=== PATIENT | female | born 1990 ===

== ENCOUNTER 2017-04-11 16:04 | Emergency (ER) | payer OTHER ==
[2017-04-11 16:05] VITALS: BMI 32.3
[2017-04-11 16:29] VITALS: BP 138/74; PULSE 76; RESP 16; TEMP 98.4; O2SAT 99
--- NOTE | 2017-04-11 17:09 | ED PDOC ---
Lower Extremity Pain/Injury Time Seen by Provider: 04/11/17 16:31 Chief Complaint (Nursing): Lower Extremity Problem/Injury Chief Complaint (Provider): Ankle Injury History Per: Patient History/Exam Limitations: no limitations Current Symptoms Are (Timing): Still Present Additional Complaint(s): Deborah Mueller, a 27 year old female, presents to the ED with an ankle injury. The patient states that she was doing an obstacle course at work when she slipped and her ankle rolled. She describes the pain a 'stabbing' sensation that radiates upwards to her left hip and knee. The patient states that she took ibuprofen for pain which did offer some relief. - Ankle/Foot Description Of Injury: Twisted Past Medical History Reviewed: Historical Data, Nursing Documentation, Vital Signs Vital Signs: Last Vital Signs Temp 98.4 F 04/11/17 16:26 Pulse 76 04/11/17 16:26 Resp 16 04/11/17 16:26 BP 138/74 04/11/17 16:26 Pulse Ox 99 04/11/17 16:26 - Medical History PMH: No Chronic Diseases Denies: Chronic Kidney Disease - Surgical History Surgical History: No Surg Hx - Family History Family History: States: Unknown Family Hx - Social History Current smoker - smoking cessation education provided: No Alcohol: None Drugs: Denies - Allergies Allergies/Adverse Reactions: Allergies Allergy/AdvReac Type Severity Reaction Status Date / Time FISH Allergy ITCHING Verified 01/04/16 23:15 Fish Containing Products Allergy ITCHING Verified 01/04/16 23:15 shellfish derived Allergy RASH Verified 09/29/16 21:14 Review of Systems Musculoskeletal: Positive for: Other (Left Ankle Pain) Physical Exam - Reviewed Nursing Documentation Reviewed: Yes Vital Signs Reviewed: Yes - Physical Exam Appears: Positive for: Non-toxic, No Acute Distress Head Exam: Positive for: ATRAUMATIC, NORMAL INSPECTION, NORMOCEPHALIC Skin: Positive for: Normal Color, Warm, Dry. Negative for: Rash Eye Exam: Positive for: Normal appearance, EOMI, PERRL Extremity: Positive for: Tenderness (Tenderness to lateral and medial malleolus of left ankle.), Capillary Refill (Capillary refills normal.), Other (Mild edema to left ankle.). Negative for: Normal ROM (Decreased ROM secondary to pain), Deformity, Swelling Neurologic/Psych: Positive for: Alert, Oriented - ECG O2 Sat by Pulse Oximetry: 99 (RA) Pulse Ox Interpretation: Normal Medical Decision Making Medical Decision Makin Initial Impression: 27 year old female presenting with injury to left ankle Initial Plan: * RAD Ankle AP/LAT Left * Motrin tab 600mg PO * Reevaluation No acute fracture or dislocation Air cast and crutches Scribe Attestation Documented by Carla Fernandez acting as a scribe for Mercy Ha PA-C. Scribe Attestation All medical record entries made by the Scribe were at my direction and personally dictated by me. I have reviewed the chart and agree that the record accurately reflects my personal performance of the history, physical exam, medical decision making, and the department course for this patient. I have also personally directed, reviewed, and agree with the discharge instructions and disposition. Disposition - Clinical Impression Clinical Impression: Ankle sprain - Patient ED Disposition Is Patient to be Admitted: No Counseled Patient/Family Regarding: Diagnosis, Need For Followup - Disposition Disposition: Routine/Home Disposition Time: 17:43 Condition: GOOD Additional Instructions: Ice, elevation, motrin for pain. Instructions: Ankle Sprain (ED)
--- NOTE | 2017-04-11 17:33 | RAD ---
PROCEDURE: Left Ankle Radiographs. HISTORY: ankle pain, twisted last night COMPARISON: None FINDINGS: BONES: Normal. No fracture. Talar dome intact. JOINTS: Ankle mortise maintained. No significant osteoarthritis. SOFT TISSUES: Questionable minimal the soft swelling OTHER FINDINGS: None. IMPRESSION: No acute fractures. Questionable minimal soft tissue swelling
== END 2017-04-11 18:16 | disposition home or self-care (01) ==
LOC: H.ER 16:04
DX: S93.402A Sprain of unspecified ligament of left ankle, initial encounter (principal); W19.XXXA Unspecified fall, initial encounter; Y99.0 Civilian activity done for income or pay

== ENCOUNTER 2018-03-16 13:43 | Emergency (ER) | payer MEDICAID, OTHER ==
[2018-03-16 13:51] VITALS: RESP 16
[2018-03-16 13:53] VITALS: BMI 34.2
--- NOTE | 2018-03-16 15:01 | ED PDOC ---
HPI: Female Pain Time Seen by Provider: 03/16/18 14:02 Chief Complaint (Nursing): Female Genitourinary Chief Complaint (Provider): Vaginal bleeding History Per: Patient History/Exam Limitations: no limitations Additional Complaint(s): Pt reports vaginal bleeding X 1 month, associated with lower abdominal cramping , dizziness and feeling tired. Had similar episode when she was younger. Has not taken anything for pain. Denies fever, CP, SOB. PMD: Dr. Biswas OB-LENDING MANAGER: Dr. Lion Abnormal Vaginal Bleeding: Yes Past Medical History Reviewed: Nursing Documentation, Vital Signs Vital Signs: Last Vital Signs Temp 98.5 F 03/16/18 13:50 Pulse 75 03/16/18 13:50 Resp 16 03/16/18 13:50 BP 138/80 03/16/18 13:50 Pulse Ox 98 03/16/18 13:50 - Medical History PMH: No Chronic Diseases Denies: Chronic Kidney Disease - Surgical History Surgical History: No Surg Hx - Family History Family History: States: Unknown Family Hx - Social History Current smoker - smoking cessation education provided: No Alcohol: None - Home Medications Home Medications: Ambulatory Orders Medication Instructions Recorded MedroxyPROGESTERone [Provera] 10 mg PO DAILY #10 tab 03/16/18 Naproxen [Naprosyn] 500 mg PO BID PRN #15 tablet 03/16/18 Ondansetron [Zofran Odt] 4 mg PO Q8H PRN #15 odt 03/16/18 - Allergies Allergies/Adverse Reactions: Allergies Allergy/AdvReac Type Severity Reaction Status Date / Time FISH Allergy ITCHING Verified 03/16/18 14:07 Fish Containing Products Allergy ITCHING Verified 03/16/18 14:07 shellfish derived Allergy RASH Verified 03/16/18 14:07 Review of Systems Constitutional: Positive for: Weakness. Negative for: Fever, Chills Cardiovascular: Negative for: Chest Pain, Palpitations Respiratory: Negative for: Cough, Shortness of Breath Gastrointestinal: Positive for: Nausea, Abdominal Pain. Negative for: Vomiting , Diarrhea Genitourinary Female: Positive for: Vaginal Bleeding. Negative for: Dysuria, Hematuria, Vaginal Discharge Musculoskeletal: Negative for: Back Pain Skin: Negative for: Rash, Lesions Neurological: Positive for: Dizziness. Negative for: Headache Physical Exam - Reviewed Nursing Documentation Reviewed: Yes Vital Signs Reviewed: Yes - Physical Exam Appears: Positive for: Well, No Acute Distress Head Exam: Positive for: ATRAUMATIC, NORMAL INSPECTION Skin: Positive for: Normal Color, Warm, Dry Eye Exam: Positive for: Normal appearance, EOMI, PERRL Cardiovascular/Chest: Positive for: Regular Rate, Rhythm Respiratory: Positive for: Normal Breath Sounds. Negative for: Rales, Rhonchi, Wheezing Gastrointestinal/Abdominal: Positive for: Bowel Sounds, Soft, Tenderness (BLQ). Negative for: Guarding, Rebound Pelvic Exam: Positive for: External Exam Normal, Active Bleeding (Minimal), Blood (Minimal). Negative for: No Masses, Discharge, Lesions, Mass Extremity: Positive for: Normal ROM Neurologic/Psych: Positive for: Alert, Oriented - Laboratory Results Result Diagrams: 03/16/18 15:12 03/16/18 15:12 - ECG O2 Sat by Pulse Oximetry: 98 - Physician Consult Information Time Consulting Physican Contacted: 17:48 Physician Contacted: Fitz Lion Outcome Of Conversation: Case discussed, recommends Provera 10 mg PO qd X 10 days. Follow-up in office. Medical Decision Making Medical Decision Makin yo female with vaginal bleeding X 1 month. - labs - pelvic ultrasound - IVF - Zofran Accession No. : [id number] Patient Name / ID : FUNMILAYO DIANE / [id number] Exam Date : 03/16/2018 16:18:47 ( Approved ) Study Comment : Sex / Age : F / [id number] Creator : Juan Pablo Garcia MD Dictator : Juan Pablo Garcia MD Leasing Associate : Survey Researcher : Juan Pablo Garcia MD Approver2 : Report Date : 03/16/2018 17:18:09 My Comment : Date of service: 03/16/2018 HISTORY: BLQ pain, vag bleeding X 1 month COMPARISON: None available. TECHNIQUE: Grayscale, color Doppler and spectral evaluation the pelvis performed transabdominally and transvaginally FINDINGS: UTERUS: Measures 7.8 x 3.4 x 4.4 cm. Anteverted. Normal in size and appearance. No fibroid or other mass lesion seen. ENDOMETRIUM: Measures 7 mm in diameter. Unremarkable. CERVIX: Nabothian cyst. No cervical abnormality identified. RIGHT OVARY: Measures 2.7 x 1.5 x 2.2 cm. No solid mass. Normal flow. LEFT OVARY: Measures 4.0 x 2.3 x 3.0 cm. No solid mass. Normal flow. FREE FLUID: No significant free fluid noted. OTHER FINDINGS: None. IMPRESSION: Unremarkable pelvic ultrasound. Disposition - Clinical Impression Clinical Impression: Abnormal vaginal bleeding - Patient ED Disposition Is Patient to be Admitted: No - Disposition Referrals: Fitz Lion MD [Staff Provider] - Disposition: Routine/Home Disposition Time: 17:50 Condition: STABLE Prescriptions: MedroxyPROGESTERone [Provera] 10 mg PO DAILY #10 tab Naproxen [Naprosyn] 500 mg PO BID PRN #15 tablet PRN Reason: Pain, Moderate (4-7) Ondansetron [Zofran Odt] 4 mg PO Q8H PRN #15 odt PRN Reason: Nausea/Vomiting Instructions: Dysfunctional Uterine Bleeding (ED) Forms: [employer] (Thai)
[2018-03-16] MEDS ORDERED: Sodium Chloride 0.9% 1,000 ML IV STA (15:04)
[2018-03-16 15:28] LABS: BASO # 0.1 K/uL (0.0-0.2); BASO % 0.9 % (0.0-2.0); EOS # 0.1 K/uL (0.0-0.7); EOS % 1.4 % (0.0-4.0); HEMOGLOBIN 11.5 g/dL (12.0-16.0); LYMPH # 1.3 K/uL (1.0-4.3); LYMPH % 21.6 % (20.0-40.0); MEAN CELL VOLUME 75.1 fl (81.0-99.0); MEAN CORPUSCULAR HGB CONC 33.4 g/dL (33.0-37.0); MEAN PLATELET VOLUME 8.9 fl (7.2-11.7); MONO # 0.5 K/uL (0.0-0.8); MONO % 8.2 % (0.0-10.0); NEUT # 4.2 K/uL (1.8-7.0); NEUT % 67.9 % (50.0-75.0); RBC 4.6 Mil/uL (3.80-5.20); RED CELL DISTRIBUTION WIDTH 17.6 % (11.5-14.5); WHITE BLOOD COUNT 6.2 K/uL (4.8-10.8)
[2018-03-16 15:32] LABS: PARTIAL THROMBOPLASTIN TIME 33.3 Seconds (25.6-37.1); PROTHROMBIN TIME 11.1 Seconds (9.8-13.1)
[2018-03-16 15:34] LABS: ALB/GLOB RATIO 1.2 (1.0-2.1); ALBUMIN 4.4 g/dL (3.5-5.0); ALT/SGPT 38 U/L (9-52); AST/SGOT 29 U/L (14-36); BLOOD UREA NITROGEN 9 mg/dl (7-17); CALCIUM 9.4 mg/dL (8.4-10.2); GFR NON-AFRICAN AMERICAN > 60
--- NOTE | 2018-03-16 17:19 | US ---
Date of service: 03/16/2018 HISTORY: BLQ pain, vag bleeding X 1 month COMPARISON: None available. TECHNIQUE: Grayscale, color Doppler and spectral evaluation the pelvis performed transabdominally and transvaginally FINDINGS: UTERUS: Measures 7.8 x 3.4 x 4.4 cm. Anteverted. Normal in size and appearance. No fibroid or other mass lesion seen. ENDOMETRIUM: Measures 7 mm in diameter. Unremarkable. CERVIX: Nabothian cyst. No cervical abnormality identified. RIGHT OVARY: Measures 2.7 x 1.5 x 2.2 cm. No solid mass. Normal flow. LEFT OVARY: Measures 4.0 x 2.3 x 3.0 cm. No solid mass. Normal flow. FREE FLUID: No significant free fluid noted. OTHER FINDINGS: None. IMPRESSION: Unremarkable pelvic ultrasound.
[2018-03-16 18:13] VITALS: BP 133/83; PULSE 76; TEMP 98.8
[2018-03-17 15:34] VITALS: O2SAT 98
== END 2018-03-16 18:03 | disposition home or self-care (01) ==
LOC: H.ER 13:43
DX: N93.9 Abnormal uterine and vaginal bleeding, unspecified (principal)
CPT/HCPCS: 76830; 76856; 80053; 81025; 85025; 85610; 85730; 86850; 86900; 96360; 99284; J2405; J7030

== ENCOUNTER 2018-07-06 01:27 | Emergency (ER) | payer MEDICAID ==
[2018-07-06 01:27] VITALS: BMI 34.2
[2018-07-06 01:48] VITALS: RESP 18
[2018-07-06] MEDS ORDERED: Sodium Chloride 0.9% 1,000 ML IV STA (02:00)
--- NOTE | 2018-07-06 02:18 | ED PDOC ---
HPI: Abdomen Time Seen by Provider: 07/06/18 01:58 Chief Complaint (Nursing): Abdominal Pain Chief Complaint (Provider): Abdominal pain History Per: Patient History/Exam Limitations: no limitations Onset/Duration Of Symptoms: Days (1) Current Symptoms Are (Timing): Still Present Associated Symptoms: Nausea, Vomiting, Diarrhea Additional History Per: Patient Additional Complaint(s): 28yo female, with no past history, comes to ER reporting fever, diarrhea and abdominal pain x 24 hours. Patient states she developed abdominal pain and had 4 episodes of non-bilious, non-bloody vomiting and numerous episodes of watery, and non-bloody diarrhea. Patient states she attempted to take pepto-bismol and tylenol but "vomited" it up. She reports fever and chills as well. She denies any recent travels or known sick contacts. No additional com plaints. PMD: Dr. Kingston Past Medical History Reviewed: Historical Data, Nursing Documentation, Vital Signs Vital Signs: Last Vital Signs Temp 99.7 F H 07/06/18 01:35 Pulse 108 H 07/06/18 01:35 Resp 18 07/06/18 01:35 BP 106/72 07/06/18 01:35 Pulse Ox 98 07/06/18 01:35 - Medical History PMH: No Chronic Diseases Denies: Chronic Kidney Disease - Surgical History Surgical History: No Surg Hx - Family History Family History: States: No Known Family Hx - Social History Current smoker - smoking cessation education provided: No Alcohol: None Drugs: Denies - Home Medications Home Medications: Ambulatory Orders Medication Instructions Recorded MedroxyPROGESTERone [Provera] 10 mg PO DAILY #10 tab 03/16/18 Naproxen [Naprosyn] 500 mg PO BID PRN #15 tablet 03/16/18 Ondansetron [Zofran Odt] 4 mg PO Q8H PRN #15 odt 03/16/18 Dicyclomine [Bentyl] 20 mg PO Q12 PRN #20 tab 07/06/18 Ondansetron ODT [Zofran ODT] 4 mg PO Q6 PRN #8 odt 07/06/18 - Allergies Allergies/Adverse Reactions: Allergies Allergy/AdvReac Type Severity Reaction Status Date / Time FISH Allergy ITCHING Verified 03/16/18 14:07 Fish Containing Products Allergy ITCHING Verified 03/16/18 14:07 shellfish derived Allergy RASH Verified 03/16/18 14:07 Review of Systems ROS Statement: Except As Marked, All Systems Reviewed And Found Negative Constitutional: Positive for: Fever, Chills Gastrointestinal: Positive for: Nausea, Vomiting, Abdominal Pain, Diarrhea Physical Exam - Reviewed Nursing Documentation Reviewed: Yes Vital Signs Reviewed: Yes - Physical Exam Appears: Positive for: No Acute Distress, Uncomfortable Head Exam: Positive for: ATRAUMATIC, NORMAL INSPECTION, NORMOCEPHALIC Skin: Positive for: Normal Color Eye Exam: Positive for: Normal appearance ENT: Positive for: Other (dry mucus membranes) Neck: Positive for: Painless ROM Cardiovascular/Chest: Positive for: Regular Rate, Rhythm Respiratory: Positive for: Normal Breath Sounds Gastrointestinal/Abdominal: Positive for: Soft, Tenderness (epigastric) Back: Positive for: Normal Inspection Extremity: Positive for: Normal ROM Neurologic/Psych: Positive for: Alert, Oriented. Negative for: Motor/Sensory Deficits - Laboratory Results Result Diagrams: 07/06/18 03:10 07/06/18 03:10 - ECG O2 Sat by Pulse Oximetry: 98 (RA) Pulse Ox Interpretation: Normal Medical Decision Making Medical Decision Making: Impression: 28yo female with diarrheal illness, abdominal pain Plan: -- Labs -- IV Fluids -- Zofran 4mg IV 0443 Labs reviewed with no clinically significant abnormalities. Patient tolerated PO intake; on reassessment, patient has a soft and nontender abdomen. Patient stable for discharge home. Diagnosis: Gastroenteritis Scribe Attestation: Documented by Cathleen Yates, acting as a scribe for Ciaran Jennings MD. Provider Scribe Attestation: All medical record entries made by the Scribe were at my direction and personally dictated by me. I have reviewed the chart and agree that the record accurately reflects my personal performance of the history, physical exam, medical decision making, and the department course for this patient. I have also personally directed, reviewed, and agree with the discharge instructions and disposition. Disposition - Clinical Impression Clinical Impression: Gastroenteritis - Disposition Disposition: Routine/Home Disposition Time: 04:44 Condition: STABLE Prescriptions: Dicyclomine [Bentyl] 20 mg PO Q12 PRN #20 tab PRN Reason: abdominal pain/diarrhea Ondansetron ODT [Zofran ODT] 4 mg PO Q6 PRN #8 odt PRN Reason: Nausea/Vomiting Instructions: Gastroenteritis (ED) Forms: [employer] (Telugu)
[2018-07-06 03:28] LABS: BASO % 0.7 % (0.0-2.0); EOS % 0.1 % (0.0-4.0); HEMOGLOBIN 11.4 g/dL (12.0-16.0); LYMPH # 0.5 K/uL (1.0-4.3); LYMPH % 7.2 % (20.0-40.0); MEAN CELL VOLUME 74.6 fl (81.0-99.0); MEAN CORPUSCULAR HEMOGLOBIN 23.6 pg (27.0-31.0); MEAN CORPUSCULAR HGB CONC 31.7 g/dL (33.0-37.0); MEAN PLATELET VOLUME 8.9 fl (7.2-11.7); MONO # 0.4 K/uL (0.0-0.8); MONO % 5.6 % (0.0-10.0); NEUT % 86.4 % (50.0-75.0); NRBC % 0.1 % (0.0-0.0); PLATELET COUNT 364 K/uL (130-400); RED CELL DISTRIBUTION WIDTH 17.1 % (11.5-14.5); WHITE BLOOD COUNT 6.9 K/uL (4.8-10.8)
[2018-07-06 03:39] LABS: ALB/GLOB RATIO 1.1 (1.0-2.1); ALBUMIN 4.5 g/dL (3.5-5.0); ALT/SGPT 22 U/L (9-52); AST/SGOT 25 U/L (14-36); BLOOD UREA NITROGEN 9 mg/dl (7-17); CALCIUM 9.4 mg/dL (8.4-10.2); GFR NON-AFRICAN AMERICAN > 60; LIPASE 49 U/L (23-300)
[2018-07-06 03:42] LABS: URINE BILIRUBIN NEGATIVE (NEGATIVE); URINE BLOOD NEGATIVE (NEGATIVE); URINE CLARITY CLEAR (Clear); URINE COLOR YELLOW (YELLOW); URINE GLUCOSE (UA) NEG (Normal); URINE LEUKOCYTE ESTERASE NEG Leu/uL (Negative); URINE PROTEIN NEGATIVE (NEGATIVE); URINE UROBILINOGEN 0.2-1.0 mg/dL (0.2-1.0)
[2018-07-06 04:38] LABS: LYMPHOCYTE 11 % (20-50); MONOCYTE 4 % (0-10); NEUTROPHIL 85 % (42-75); TOTAL CELLS COUNTED 100
[2018-07-06 04:39] LABS: PLATELET ESTIMATE NORMAL (NORMAL)
[2018-07-06 05:28] VITALS: BP 124/75; PULSE 86; TEMP 98.6; O2SAT 99
== END 2018-07-06 04:55 | disposition home or self-care (01) ==
LOC: H.ER 01:27
DX: K52.9 Noninfective gastroenteritis and colitis, unspecified (principal)
CPT/HCPCS: 80053; 81003; 81025; 83605; 83690; 85025; 87040; 96361; 96374; 96375; 99284; J1885; J2405; J7030